=== PATIENT | female | born 1970 | race Caucasian/White ===

== ENCOUNTER 2023-05-10 10:06 | Emergency (ER) | payer OTHER ==
[~2023-05-10] VITALS: Ht 162.6 cm; Wt 72.6 kg
[2023-05-10] MEDS ORDERED: ZESTRIL10 M1 PO (11:07)
== END 2023-05-10 13:49 | disposition home or self-care (01) ==
LOC: ER 10:06
DX: K21.9 Gastro-esophageal reflux disease without esophagitis (principal); I10 Essential (primary) hypertension; K30 Functional dyspepsia
CPT/HCPCS: 36415; 93005; 96365; 99284; J3490